=== PATIENT | female | born 1950 | race Caucasian/White ===

== ENCOUNTER 2018-10-17 06:23 | Inpatient (IN) | payer OTHER ==
[2018-10-17] MEDS ORDERED: LIDOCAINE 2% (SDV) 5 ML INJ (07:00)
[2018-10-17] MEDS ORDERED: NEOSTIGMINE 3 MG/3 ML SYRINGE ×2 (07:00→11:14)
[2018-10-17] MEDS ORDERED: GLYCOPYRROLATE 0.4 MG INJ ×2 (07:00→11:14)
[2018-10-17] MEDS ORDERED: BETHANECHOL 25 MG TAB PO (08:00)
[2018-10-17] MEDS ORDERED: MAGNESIUM HYDROXIDE 30ML CUP PO (08:00)
[2018-10-17] MEDS ORDERED: NALOXONE (0.4 MG/ML) INJ IV (08:00)
[2018-10-17] MEDS ORDERED: DIPHENHYDRAMINE 50 MG INJ IV ×2 (08:00→11:30)
[2018-10-17] MEDS ORDERED: BISACODYL 10 MG SUPP PR (08:00)
[2018-10-17] MEDS ORDERED: NA PHOSPHATE/BIPHOS 133 ML ENEMA PR (08:00)
[2018-10-17] MEDS ORDERED: MIDAZOLAM 1 MG/ML 2 ML INJ (08:57)
[2018-10-17] MEDS ORDERED: FENTAnyl 50 MCG/ML VIAL (08:58)
[2018-10-17] MEDS ORDERED: PHENYLephrine (100 MCG/ML) 5ML SYG (09:00)
[2018-10-17] MEDS: GABAPENTIN 100 MG CAP PO ×2 (09:00→21:09)
[2018-10-17] MEDS: BACITRACIN 50000 UNITS INJ (09:41)
[2018-10-17] MEDS: POLYMYXIN B 500000 UNIT INJ (09:45)
[2018-10-17] MEDS: TRANEXAMIC ACID 1,000 MG in D5W 100 ML AT CLOSURE X1 IVPB (09:46)
[2018-10-17] MEDS: TRANEXAMIC ACID 1,000 MG in D5W 100 ML AT INCISION X1 IVPB ×2 (09:47→11:05)
[2018-10-17] MEDS ORDERED: DEXAMETHASONE 4 MG/ML 1 ML INJ (10:06)
[2018-10-17] MEDS ORDERED: ONDANSETRON 4 MG INJ (10:07)
[2018-10-17] MEDS ORDERED: ROCURONIUM 50 MG INJ (10:07)
[2018-10-17] MEDS ORDERED: CEFAZOLIN 1 GM INJ (10:07)
[2018-10-17] MEDS ORDERED: ETOMIDATE 20 MG INJ (10:08)
[2018-10-17] MEDS ORDERED: LABETALOL HCL 20MG INJ (11:14)
[2018-10-17] MEDS ORDERED: FENTAnyl 50 MCG/ML VIAL IV ×3 (11:30)
[2018-10-17] MEDS ORDERED: hydrALAzine 20 MG INJ IV (11:30)
[2018-10-17] MEDS ORDERED: KETOROLAC 30 MG INJ IV (11:30)
[2018-10-17] MEDS ORDERED: ONDANSETRON 4 MG INJ IV (11:30)
[2018-10-17] MEDS ORDERED: HYDROmorphONE 1 MG/5 ML IV SYRINGE IV ×3 (11:30)
[2018-10-17] MEDS ORDERED: ALBUTEROL 0.083% (NEB) 2.5 MG/3 ML AMP HHN (11:30)
[2018-10-17] MEDS ORDERED: EPHEDrine SULFATE 50 MG/5 ML SYG IV (11:30)
[2018-10-17] MEDS ORDERED: METOCLOPRAMIDE 10 MG INJ IV (11:30)
[2018-10-17] MEDS ORDERED: MEPERIDINE 25 MG INJ IV (11:30)
[2018-10-17] MEDS ORDERED: LABETALOL HCL 20MG INJ IV (11:30)
[2018-10-17] MEDS: ONDANSETRON 4 MG INJ IV ×3 (11:57→21:09)
[2018-10-17] MEDS: ASPIRIN (EC) 325 MG TAB PO (11:57)
[2018-10-17] MEDS: DOCUSATE SODIUM 100 MG CAP PO (11:57)
[2018-10-17] MEDS: CLINDAMYCIN 600 MG/D5W (PMX) 50 ML IVPB (13:22)
[2018-10-17] MEDS: SOD CHLORIDE 0.9% 1,000 ML IV ×2 (13:39→20:25)
[2018-10-17] MEDS ORDERED: GLUCAGON 1 MG INJ IM (14:00)
[2018-10-17] MEDS ORDERED: GLUCOSE GEL 15 GRAM TUBE PO ×2 (14:00)
[2018-10-17] MEDS ORDERED: DEXTROSE 50% 50 ML SYRINGE IV ×2 (14:00)
[2018-10-17] MEDS ORDERED: GLUCOSE GEL 15 GRAM TUBE BUCCAL (14:00)
[2018-10-17] MEDS: HYDROCODONE/APAP (10/325) TAB PO (15:07)
[2018-10-17] MEDS: hydrALAzine 20 MG INJ IV (16:44)
[2018-10-17] MEDS: VANCOMYCIN 1 GM (PMX) 250 ML IVPB (17:50)
[2018-10-17] MEDS: INSULIN ASPART [NOVOLOG] 3 ML PEN SC ×2 (18:06→21:00)
[2018-10-17] MEDS: traMADol 50 MG TAB PO (21:08)
[2018-10-18] MEDS: ONDANSETRON 4 MG INJ IV (02:00)
[2018-10-18] MEDS: SOD CHLORIDE 0.9% 1,000 ML IV (03:36)
[2018-10-18] MEDS: HYDROCODONE/APAP (10/325) TAB PO ×3 (03:57→19:55)
[2018-10-18 05:23] LABS: ADD MAN DIFF? NO
[2018-10-18 05:28] LABS: WHITE BLOOD COUNT 10.8 10^3/ul (4.8-10.8)
[2018-10-18 05:28] LABS: BASOPHILS % 0.1 % (0.0-2.0); EOSINOPHILS % 0.1 % (0.0-7.0); HEMATOCRIT 33.6 % (37.0-47.0); HEMOGLOBIN 10.7 g/dl (12.0-16.0); LYMPHOCYTES # 0.9 10^3/ul (0.8-2.9); LYMPHOCYTES % 8.4 % (15.0-51.0); MEAN CORPUSCULAR HEMOGLOBIN 27.6 pg (29.0-33.0); MEAN CORPUSCULAR HGB CONC 31.8 g/dl (32.0-37.0); MEAN CORPUSCULAR VOLUME 86.8 fl (82.0-101.0); MEAN PLATELET VOLUME 10.1 fl (7.4-10.4); MONOCYTES % 9.2 % (0.0-11.0); NEUTROPHIL # 8.9 10^3/ul (1.6-7.5); NEUTROPHILS % 81.8 % (39.0-77.0); PLATELET COUNT 226 10^3/UL (140-415); RED BLOOD COUNT 3.87 10^6/ul (4.20-5.40); RED CELL DISTRIBUTION WIDTH 14.1 % (11.5-14.5)
[2018-10-18 06:05] LABS: HEMOGLOBIN A1C 5.9 % (0-5.9)
[2018-10-18] MEDS: LEVOTHYROXINE 88 MCG TAB PO (06:05)
[2018-10-18] MEDS: VANCOMYCIN 1 GM (PMX) 250 ML IVPB (06:05)
[2018-10-18] MEDS: PANTOPRAZOLE (EC) 40 MG TAB PO (06:05)
[2018-10-18 06:20] LABS: ANION GAP 7 (5-13); BLOOD UREA NITROGEN 24 mg/dl (7-20); CALCIUM 8.7 mg/dl (8.4-10.2); CARBON DIOXIDE 25 mmol/L (21-31); CHLORIDE 105 mmol/L (97-110); CREATININE 1.15 mg/dl (0.44-1.00); Estimated GFR 47 mL/min (>60); GLUCOSE 114 mg/dl (70-220); SODIUM 137 mmol/L (135-144)
[2018-10-18] MEDS: metFORMIN 500 MG TAB PO (08:55)
[2018-10-18] MEDS: BUPROPION (XL) 150 MG TAB PO (08:56)
[2018-10-18] MEDS: LOSARTAN 50 MG TAB PO (08:57)
[2018-10-18] MEDS: GABAPENTIN 100 MG CAP PO (08:57)
[2018-10-18] MEDS: FERROUS FUMARATE (SR) TAB PO (08:57)
[2018-10-18] MEDS: SERTRALINE 100 MG TAB PO (08:58)
[2018-10-18] MEDS: DOCUSATE SODIUM 100 MG CAP PO (08:59)
[2018-10-18] MEDS: METOPROLOL (XL) 25 MG TAB PO (08:59)
[2018-10-18] MEDS ORDERED: PANTOPRAZOLE (EC) 40 MG TAB PO (09:00)
[2018-10-18] MEDS: ASPIRIN (EC) 325 MG TAB PO (09:01)
[2018-10-18] MEDS: INSULIN ASPART [NOVOLOG] 3 ML PEN SC ×3 (09:02→17:54)
[2018-10-18] MEDS: hydrALAzine 20 MG INJ IV (10:37)
[2018-10-18 13:12] LABS: HSV 1 IGG ANTIBODY <0.90 index; HSV 2 IGG ANTIBODY <0.90 index
[2018-10-18] MEDS: SENNA/DOCUSATE NA (8.6MG/50MG) TAB PO (15:10)
[2018-10-18] MEDS: traMADol 50 MG TAB PO (17:05)
== END 2018-10-18 20:45 | DRG 470 ==
LOC: REC 06:23 → MS1 12:28
PROVIDERS: Orthopaedic Surgery
PROC: 0SRC0J9 Replacement of Right Knee Joint with Synthetic Substitute, Cemented, Open Approach (ICD-10-PCS; principal; 2018-10-17 08:30)
DX: M17.11 Unilateral primary osteoarthritis, right knee (principal); E03.9 Hypothyroidism, unspecified; I10 Essential (primary) hypertension; E11.9 Type 2 diabetes mellitus without complications; E78.5 Hyperlipidemia, unspecified; F32.9 Major depressive disorder, single episode, unspecified; Z79.899 Other long term (current) drug therapy; Z79.84 Long term (current) use of oral hypoglycemic drugs
CPT/HCPCS: 73560; 80048; 82962; 83036; 85025; 86692; 86850; 86900; 86901; 88304; 88311; 97116; 97161; 97166; 97530

== ENCOUNTER 2018-11-04 17:52 | Inpatient (IN) | payer OTHER ==
[2018-11-04 19:04] LABS: ADD MAN DIFF? NO
[2018-11-04 19:07] LABS: WHITE BLOOD COUNT 9.2 10^3/ul (4.8-10.8)
[2018-11-04 19:07] LABS: BASOPHILS % 0.4 % (0.0-2.0); EOSINOPHILS # 0.2 10^3/ul (0.0-0.5); EOSINOPHILS % 2.2 % (0.0-7.0); HEMATOCRIT 34.2 % (37.0-47.0); HEMOGLOBIN 10.6 g/dl (12.0-16.0); LYMPHOCYTES % 21.3 % (15.0-51.0); MEAN CORPUSCULAR HEMOGLOBIN 27.1 pg (29.0-33.0); MEAN CORPUSCULAR VOLUME 87.5 fl (82.0-101.0); MEAN PLATELET VOLUME 9.2 fl (7.4-10.4); MONOCYTE # 0.8 10^3/ul (0.3-0.9); MONOCYTES % 8.3 % (0.0-11.0); NEUTROPHIL # 6.2 10^3/ul (1.6-7.5); NEUTROPHILS % 67.4 % (39.0-77.0); PLATELET COUNT 402 10^3/UL (140-415); RED BLOOD COUNT 3.91 10^6/ul (4.20-5.40); RED CELL DISTRIBUTION WIDTH 13.9 % (11.5-14.5)
[2018-11-04 19:26] LABS: INR 0.93; PROTIME 12.5 Sec (11.9-14.9)
[2018-11-04 19:27] LABS: PARTIAL THROMBOPLASTIN TIME 24.4 Sec (23.0-35.0)
[2018-11-04 19:32] LABS: ANION GAP 10 (5-13); BLOOD UREA NITROGEN 22 mg/dl (7-20); CALCIUM 8.8 mg/dl (8.4-10.2); CARBON DIOXIDE 25 mmol/L (21-31); CHLORIDE 102 mmol/L (97-110); CREATININE 0.88 mg/dl (0.44-1.00); Estimated GFR > 60 mL/min (>60); GLUCOSE 159 mg/dl (70-220); POTASSIUM 4.1 mmol/L (3.5-5.1); SODIUM 137 mmol/L (135-144)
[2018-11-04] MEDS ORDERED: DEXTROSE 50% 50 ML SYRINGE IV ×2 (23:00)
[2018-11-04] MEDS ORDERED: NACL 0.9% 3 ML SYG IV (23:00)
[2018-11-04] MEDS ORDERED: GLUCOSE GEL 15 GRAM TUBE BUCCAL (23:00)
[2018-11-04] MEDS ORDERED: GLUCOSE GEL 15 GRAM TUBE PO ×2 (23:00)
[2018-11-04] MEDS ORDERED: GLUCAGON 1 MG INJ IM (23:00)
[2018-11-04] MEDS ORDERED: ONDANSETRON 4 MG INJ IV (23:00)
[2018-11-04] MEDS: DEXTROSE 5%-0.45% NACL 1,000 ML IV (23:11)
[2018-11-04] MEDS: FAMOTIDINE 20 MG INJ IV (23:11)
[2018-11-04] MEDS: KETOROLAC 30 MG INJ IV (23:11)
[2018-11-05] MEDS: ACCU-CHEK XX ×3 (03:16→20:30)
[2018-11-05] MEDS: INSULIN ASPART [NOVOLOG] 3 ML PEN SC ×5 (05:00→20:30)
[2018-11-05] MEDS ORDERED: INSULIN ASPART [NOVOLOG] 3 ML PEN SC (08:00)
[2018-11-05] MEDS: KETOROLAC 30 MG INJ IV (08:22)
[2018-11-05 08:39] LABS: ADD MAN DIFF? NO
[2018-11-05 08:47] LABS: BASOPHIL # 0.1 10^3/ul (0.0-0.1); BASOPHILS % 0.7 % (0.0-2.0); EOSINOPHILS # 0.2 10^3/ul (0.0-0.5); EOSINOPHILS % 2.5 % (0.0-7.0); HEMATOCRIT 33.7 % (37.0-47.0); HEMOGLOBIN 10.5 g/dl (12.0-16.0); LYMPHOCYTES # 1.7 10^3/ul (0.8-2.9); LYMPHOCYTES % 23.5 % (15.0-51.0); MEAN CORPUSCULAR HEMOGLOBIN 27.1 pg (29.0-33.0); MEAN CORPUSCULAR HGB CONC 31.2 g/dl (32.0-37.0); MEAN CORPUSCULAR VOLUME 87.1 fl (82.0-101.0); MEAN PLATELET VOLUME 9.6 fl (7.4-10.4); MONOCYTE # 0.6 10^3/ul (0.3-0.9); MONOCYTES % 7.9 % (0.0-11.0); NEUTROPHIL # 4.7 10^3/ul (1.6-7.5); NEUTROPHILS % 64.8 % (39.0-77.0); PLATELET COUNT 373 10^3/UL (140-415); RED BLOOD COUNT 3.87 10^6/ul (4.20-5.40); RED CELL DISTRIBUTION WIDTH 13.8 % (11.5-14.5)
[2018-11-05 08:47] LABS: WHITE BLOOD COUNT 7.2 10^3/ul (4.8-10.8)
[2018-11-05 09:13] LABS: HEMOGLOBIN A1C 5.8 % (0-5.9)
[2018-11-05 09:16] LABS: ALANINE AMINOTRANSFERASE 13 IU/L (13-69); ALBUMIN 3.2 g/dl (3.3-4.9); ALBUMIN/GLOBULIN RATIO 1.33; ALKALINE PHOSPHATASE 103 IU/L (42-121); ANION GAP 8 (5-13); ASPARTATE AMINO TRANSFERASE 12 IU/L (15-46); BILIRUBIN,INDIRECT 0.3 mg/dl (0-1.1); BILIRUBIN,TOTAL 0.3 mg/dl (0.2-1.3); BLOOD UREA NITROGEN 21 mg/dl (7-20); CALCIUM 8.7 mg/dl (8.4-10.2); CARBON DIOXIDE 27 mmol/L (21-31); CHLORIDE 104 mmol/L (97-110); CREATININE 0.88 mg/dl (0.44-1.00); Estimated GFR > 60 mL/min (>60); GLUCOSE 133 mg/dl (70-220); PHOSPHORUS 4.2 mg/dl (2.5-4.9); SODIUM 139 mmol/L (135-144); TOTAL PROTEIN 5.6 g/dl (6.1-8.1)
[2018-11-05] MEDS: FAMOTIDINE 20 MG INJ IV (09:56)
[2018-11-05] MEDS ORDERED: NON-FORMULARY/PATIENT OWN MED (Protein Supplement (Promod) 30 ML) PO (12:00)
[2018-11-05] MEDS: GABAPENTIN 100 MG CAP PO ×2 (12:10→20:23)
[2018-11-05] MEDS: FERROUS SULFATE (EC) 325 MG TAB PO ×2 (12:10→20:23)
[2018-11-05] MEDS: ASCORBIC ACID 500 MG TAB PO (12:10)
[2018-11-05] MEDS: PANTOPRAZOLE (EC) 40 MG TAB PO (12:10)
[2018-11-05] MEDS: SERTRALINE 100 MG TAB PO (12:10)
[2018-11-05] MEDS: LOSARTAN 50 MG TAB PO (12:11)
[2018-11-05] MEDS: METOPROLOL 25 MG TAB PO ×2 (12:11→20:24)
[2018-11-05] MEDS: hydrALAzine 20 MG INJ IV ×2 (14:47→21:47)
[2018-11-05] MEDS: oxyCODONE 5 MG TAB PO ×2 (16:33→20:27)
[2018-11-05] MEDS: DOCUSATE SODIUM 100 MG CAP PO (20:23)
[2018-11-06] MEDS: oxyCODONE 5 MG TAB PO ×2 (01:58→15:07)
[2018-11-06] MEDS: ACCU-CHEK XX ×3 (02:00→12:07)
[2018-11-06] MEDS: LEVOTHYROXINE 88 MCG TAB PO (06:01)
[2018-11-06] MEDS: INSULIN ASPART [NOVOLOG] 3 ML PEN SC ×2 (08:00→12:00)
[2018-11-06] MEDS: DOCUSATE SODIUM 100 MG CAP PO (08:39)
[2018-11-06] MEDS: GABAPENTIN 100 MG CAP PO (08:40)
[2018-11-06] MEDS: FERROUS SULFATE (EC) 325 MG TAB PO (08:40)
[2018-11-06] MEDS: metFORMIN 500 MG TAB PO (08:40)
[2018-11-06] MEDS: PANTOPRAZOLE (EC) 40 MG TAB PO (08:40)
[2018-11-06] MEDS: SERTRALINE 100 MG TAB PO (08:40)
[2018-11-06] MEDS: LOSARTAN 50 MG TAB PO (08:40)
[2018-11-06] MEDS: METOPROLOL 25 MG TAB PO (08:41)
[2018-11-06] MEDS: ASCORBIC ACID 500 MG TAB PO (09:00)
[2018-11-06] MEDS: hydrALAzine 20 MG INJ IV (16:09)
== END 2018-11-06 16:45 | disposition short-term general hospital (02) | DRG 560 ==
LOC: E/R 17:52 → PP2 19:33
DX: M96.69 Fracture of other bone following insertion of orthopedic implant, joint prosthesis, or bone plate (principal); S82.041A Displaced comminuted fracture of right patella, initial encounter for closed fracture; M97.11XA Periprosthetic fracture around internal prosthetic right knee joint, initial encounter; I10 Essential (primary) hypertension; F32.9 Major depressive disorder, single episode, unspecified; E11.9 Type 2 diabetes mellitus without complications; F41.9 Anxiety disorder, unspecified; E03.9 Hypothyroidism, unspecified; I51.7 Cardiomegaly; M25.461 Effusion, right knee; K21.9 Gastro-esophageal reflux disease without esophagitis; E66.9 Obesity, unspecified; Z68.27 Body mass index [BMI] 27.0-27.9, adult; Z79.84 Long term (current) use of oral hypoglycemic drugs; Z96.651 Presence of right artificial knee joint; W19.XXXA Unspecified fall, initial encounter
CPT/HCPCS: 36415; 71045; 73562; 80048; 80053; 82962; 83036; 83735; 84100; 85025; 85610; 85730; 87040; 87081; 93005; 93971; 99285-25